=== PATIENT | male | born 1970 | race Caucasian/White ===

== ENCOUNTER → 2019-08-28 | Emergency (ER) | payer OTHER ==
[~2019-08-28] VITALS: Ht 170.2 cm; Wt 93.0 kg
[~2019-08-28] MED LIST: CLONAZEPAM0.5 MG PO; GABAPENTIN100 MG PO; NEURONTIN300 MG PO; SEROQUEL300 MG PO; VALIUM5 MG PO
--- NOTE | 2019-08-28 23:43 | EKG ---
[facility] [address] [place] [address] Signed Sinus tachycardia Otherwise normal ECG No previous ECGs available Confirmed by MARNI LUCAS MD ([id number] on 08/28/2019 11:43:04 PM Electronically Signed By: MARNI LUCAS MD 08/28/19 [id number] PATIENT NAME: ANYA MCRAE Electrocardiogram DATE OF : 74 PHYSICIAN: MARNI LUCAS MD REPORT #: [id number] REPORT IS CONFIDENTIAL AND NOT TO BE RELEASED WITHOUT AUTHORIZATION
== END ==
LOC: ED 11:07
DX: F10.129 Alcohol abuse with intoxication, unspecified (principal); Y90.8 Blood alcohol level of 240 mg/100 ml or more; F17.200 Nicotine dependence, unspecified, uncomplicated; Z79.899 Other long term (current) drug therapy
CPT/HCPCS: 71046; 80053; 80176; 81001; 84443; 85025; 87275; 87276; 87502; 93005; 93010; 96361; 96374; 99284-25; A9270; G0480; J2060; J7030